=== PATIENT | female | born 1965 | race Caucasian/White ===

== ENCOUNTER 2019-10-19 06:37 | Observation (INO) ==
--- NOTE | 2019-09-18 16:18 | PAT Medication Instructions ---
Medication Instructions Date of Service September 18, 2019 Home Medications Medication Instructions Recorded atorvastatin 10 mg tablet 10 mg PO QPM #90 tab 10/30/18 meloxicam 7.5 mg tablet 7.5 mg PO BID PRN #180 tab 12/16/18 aspirin 81 mg tablet,delayed release 81 mg PO DAILY cholecalciferol (vitamin D3) 50 mcg (2,000 unit) capsule 2,000 unit PO .TAKE 1 CAPSULE Daily atorvastatin 10 mg tablet 10 mg PO QPM meloxicam 7.5 mg tablet 7.5 mg PO BID PRN atenolol 50 mg PO QAM levothyroxine 50 mcg PO QAM losartan-hydrochlorothiazide 1 tab PO QAM metformin 500 mg PO UD omeprazole 20 mg PO QAM ASK your surgeon for instructions meloxicam 7.5 mg tablet 7.5 mg PO BID PRN DO NOT take the morning of surgery cholecalciferol (vitamin D3) 50 mcg (2,000 unit) capsule 2,000 unit PO .TAKE 1 CAPSULE Daily losartan-hydrochlorothiazide 1 tab PO QAM metformin 500 mg PO UD Take morning of surgery With a small sip of water, OTHERWISE NOTHING TO EAT OR DRINK AFTER MIDNIGHT: aspirin 81 mg tablet,delayed release 81 mg PO DAILY atenolol 50 mg PO QAM levothyroxine 50 mcg PO QAM omeprazole 20 mg PO QAM Take evening before surgery atorvastatin 10 mg tablet 10 mg PO QPM metformin 500 mg PO UD Other Notes If you have any questions please call us at [phone] or [phone] or [phone] or [phone]
--- NOTE | 2019-09-22 11:41 | Anesthesiology Consultation ---
Date of Service September 22, 2019 Assessment & Plan (1) Encounter for pre-operative examination: - Check BSG AM DOS Per PAT assessment on 09/21: Travel screen negative. No known COVID-19 positive contacts (grandson had fever- COVID testing was negative). No current COVID-19 related symptoms. Surgeon arranging preop COVID testing. Awaiting results. Chart Review Chart Review: Acceptable Risk for Surgery (pending COVID testing) and Patient seen in Pre Admission Testing Teaching & Discussion Pre-Anesthesia Teaching/Discussion Notes: Instructed NPO after midnight before surgery,except medications with 15 cc of water. Medication instructions provided according to the PAT guidelines. History Surgery Operation Date: 10/19/19 07:30 Proposed Procedures p Right Total Knee Arthroplasty - Ritchie Martinez DO Height/Weight Height: 5 ft 1.5 in Weight: 101.4 kg Allergies Allergy/AdvReac Type Severity Reaction Status Date / Time BEE STINGS Allergy Unknown unknown Uncoded 09/22/19 11:39 reaction as child Medications Home Medications Medication Instructions Recorded Confirmed Last Taken aspirin 81 mg tablet,delayed 81 mg PO DAILY tab 08/22/18 09/15/19 Unknown release cholecalciferol (vitamin D3) 50 2,000 unit PO .TAKE 1 CAPSULE 08/22/18 09/15/19 Unknown mcg (2,000 unit) capsule Daily cap atorvastatin 10 mg tablet 10 mg PO QPM #90 tab 10/30/18 09/15/19 Unknown meloxicam 7.5 mg tablet 7.5 mg PO BID PRN #180 tab 12/16/18 09/15/19 Unknown atenolol 50 mg PO QAM 09/15/19 09/15/19 Unknown levothyroxine 50 mcg PO QAM 09/15/19 09/15/19 Unknown losartan-hydrochlorothiazide 1 tab PO QAM 09/15/19 09/15/19 Unknown metformin 500 mg PO UD 09/15/19 09/15/19 Unknown omeprazole 20 mg PO QAM 09/15/19 09/15/19 Unknown Wheeled Walker #1 ea 09/22/19 09/22/19 Unknown Past Medical History Medical History (Updated 09/22/19 @ 15:56 by Aleta Toro) Diabetes mellitus type 2, controlled NIDDM Diarrhea chronic Dyslipidemia Esophageal reflux controlled Hypertension Hypothyroidism Morbid obesity Exercise / Class Metabolic Activity II 4-5 Yardwork/Stairs/Walk up hill Past Family History Family History Mother Hypertension Father Diabetes Pure hypercholesterolemia Kidney disease PVD (peripheral vascular disease) Hypertension Other Family history of Walton's esophagus Past Surgical History Surgical History History of colonoscopy History of dental surgery WISDOM TEETH History of dilation and curettage History of hysteroscopy History of tubal ligation Status post hysteroscopic ablation of endometrium HX OF Past Anesthesia History No Hx of Anesthesia Complications and No Family Hx of Anesthesia Complications History of PONV No Hx of PONV and No Hx of Motion Sickness Social History Smoking Status: Never smoker Do You Dip or Chew Tobacco: No Hx Alcohol Use: Yes (ONCE A YR) Hx Substance Use: No substance use type: does not use Review of Systems Patient denies chest pain, shortness of breath, dyspnea on exertion, joint pain, reflux, cough, wheezing, palpitations. Physical Exam Vital Signs VIT/ALS BP 119/73 P 60 TEMP 98.3 SP02 97%RA RESP16 PHYSICAL Full neck and c-spine range of motion. Full TMJ range of motion. TMD 3.5 finger breaths Mallampati Score 3 Dentition: upper right chipped molar per patient, missing molars Lungs: clear throughout to auscultation Cardiac: regular rate and rhythm, no murmurs noted Spine: normal Carotid arteries: negative bruit Extremities: no edema Testing Laboratory Results 09/22/19 12:47 09/22/19 12:47 PT 10.6 Seconds (9.0-12.0) 09/22/19 12:47 INR 1.0 (0.9-1.1) 09/22/19 12:47 APTT 32.8 Seconds (21.0-31.0) H 09/22/19 12:47 Hemoglobin A1c 6.8 % (4.5-5.6) H 09/22/19 12:47 Blood Type AB Negative 09/22/19 12:47 Antibody Screen NEGATIVE 09/22/19 12:47 Electrocardiogram Date: 09/22/19 Findings: + SB @ (58) Chest X-Ray Date: 09/22/19 Heart and mediastinal and hilar silhouettes are within normal limits. No pneumothorax, pleural effusion or overt pulmonary edema. Ill-defined medial right lung base opacities are suggestive of summation density/atelectasis. Bones appear grossly intact. IMPRESSION: No acute process.
[2019-09-22 13:12] LABS: Basophils # (auto) 0.05 K/uL (0-0.2); Basophils % (auto) 0.6 %; Eosinophils # (auto) 0.16 K/uL (0-0.5); Eosinophils % (auto) 1.8 %; Hematocrit (blood only) 40.1 % (37-47); Hemoglobin 13.5 g/dL (12.0-16.0); Immature Granulocytes # (auto) 0.02 K/uL (0.00-0.02); Immature Granulocytes % (auto) 0.2 %; Lymphocytes # (auto) 2.97 K/uL (1.2-3.4); Lymphocytes % (auto) 33.5 %; Mean Corpuscular Hemoglobin 29.1 pg (25-34); Mean Corpuscular Hgb Conc 33.7 g/dL (32-36); Mean Corpuscular Volume 86.4 fL (80-100); Mean Platelet Volume 11.7 fL (7.4-10.4); Monocytes # (auto) 0.55 K/uL (0.11-0.59); Monocytes % (auto) 6.2 %; Neutrophils # (auto) 5.11 K/uL (1.4-6.5); Neutrophils % (auto) 57.7 %; Platelet Count 281 K/uL (130-400); RDW Coefficient of Variation 12.6 % (11.5-14.5); RDW Standard Deviation 40.2 fL (36.4-46.3); Red Blood Count 4.64 M/uL (4.2-5.4); White Blood Count 8.86 K/uL (4.8-10.8)
--- NOTE | 2019-09-22 13:16 | XRay Report ---
XR chest Pre-admission PA/Lat HISTORY: 53 years-old Female pat preoperative exam. COMPARISON: Chest radiographs 06/15/2014 TECHNIQUE: PA and lateral views of the chest FINDINGS: Heart and mediastinal and hilar silhouettes are within normal limits. No pneumothorax, pleural effusi on or overt pulmonary edema. Ill-defined medial right lung base opacities are suggestive of summation density/atelectasis. Bones appear grossly intact. IMPRESSION: No acute process. ACT 112: Negative or not required by law. The above report was generated using voice recognition software. It may contain grammatical, syntax o r spelling errors. Electronically signed by: Nicho Vinson M.D. 09/22/2019 1:15 PM
[2019-09-22 13:35] LABS: Partial Thromboplastin Ratio 1.2; Partial Thromboplastin Time 32.8 Seconds (21.0-31.0); Prothrombin Time 10.6 Seconds (9.0-12.0)
[2019-09-22 13:37] LABS: Estimated Average Glucose 148 mg/dl; Hemoglobin A1C 6.8 % (4.5-5.6)
--- NOTE | 2019-09-22 13:44 | Electrocardiogram Report ---
Test Reason : Blood Pressure : / mmHG Vent. Rate : 058 BPM Atrial Rate : 058 BPM P-R Int : 150 ms QRS Dur : 080 ms QT Int : 444 ms P-R-T Axes : 043 061 049 degrees QTc Int : 435 ms Sinus bradycardia Otherwise normal ECG When compared with ECG of 18-FEB-2014 15:13, No significant change was found Confirmed by Kraig Barrientos ([id number]) on 09/22/2019 1:43:45 PM Referred By: Ritchie Martinez Confirmed By:Kraig Barrientos
[2019-09-22 14:47] LABS: BUN Creatinine Ratio 17.5 (10-20); Calcium 9.7 mg/dl (8.5-10.1); Creatinine Clr Calc Pharmacy 91.8 ml/min; Est GFR (African American) 98.9; Est GFR (Non-African American) 85.4; Potassium 4.2 mmol/L (3.5-5.1)
--- NOTE | 2019-10-14 07:25 | History & Physical Report ---
Date of Service October 14, 2019 Assessment & Plan (1) Osteoarthritis of right knee: We will proceed with a right total knee arthroplasty. Postoperatively she will be started on aspirin for DVT prophylaxis and kept overnight in the hospital for postoperative medical management. She plans to use energy physical therapy upon discharge. Phyllis is an increased risk for joint replacement surgery with a BMI of 41.6. This is a major comorbidity. Present on Admission?: Yes History of Present Illness Chief Complaint: Primary osteoarthritis of the right knee Primary Care Provider: Christa Calderon MD Phyllis is a pleasant 53-year-old female who is been doing with chronic increasing right knee pain. X-rays and clinical examination have been diagnostic for advanced osteoarthritis of the right knee. After failing extensive conservative treatment, including multiple injections, she has elected proceed with a right total knee arthroplasty. Allergies Allergy/AdvReac Type Severity Reaction Status Date / Time lisinopril Allergy Unknown Verified 10/12/19 09:29 BEE STINGS Allergy Unknown unknown Uncoded 10/12/19 09:29 reaction as child Home Medications Home Medications Medication Instructions Recorded Confirmed Type aspirin 81 mg tablet,delayed 81 mg PO DAILY tab 08/22/18 10/12/19 History release cholecalciferol (vitamin D3) 50 2,000 unit PO .TAKE 1 CAPSULE 08/22/18 10/12/19 History mcg (2,000 unit) capsule Daily cap atorvastatin 10 mg tablet 10 mg PO QPM #90 tab 10/30/18 10/12/19 Rx meloxicam 7.5 mg tablet 7.5 mg PO BID PRN #180 tab 12/16/18 10/12/19 Rx atenolol 50 mg PO QAM 09/15/19 10/12/19 History Wheeled Walker #1 ea 09/22/19 10/12/19 Rx levothyroxine 50 mcg tablet 50 mcg PO QAM #90 tab 10/05/19 10/12/19 Rx losartan 50 mg-hydrochlorothiazide 1 tab PO QAM #90 tab 10/05/19 10/12/19 Rx 12.5 mg tablet metformin 500 mg tablet 500 mg PO UD #270 tab 10/05/19 10/12/19 Rx omeprazole 20 mg capsule,delayed 20 mg PO QAM #90 cap 10/05/19 10/12/19 Rx release Past Med/Surg History Medical History Diabetes mellitus type 2, controlled NIDDM Diarrhea chronic Dyslipidemia Esophageal reflux controlled Hypertension Hypothyroidism Morbid obesity Surgical History History of colonoscopy History of dental surgery WISDOM TEETH History of dilation and curettage History of hysteroscopy History of tubal ligation Status post hysteroscopic ablation of endometrium HX OF Family History Mother Hypertension Father Diabetes Pure hypercholesterolemia Kidney disease PVD (peripheral vascular disease) Hypertension Other Family history of Walton's esophagus Social History Smoking Status: Never smoker Hx Alcohol Use: Yes (ONCE A YR) Hx Substance Use: No Preferred Language: Czech Communication Ability: Effective 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 Beliefs That Will Affect Care: None Current Living Situation: Spouse Feels Safe at Home: Yes Review of Systems Review of Systems: All systems reviewed & are unremarkable except as noted in HPI & below Physical Exam Constitutional: WD/WN, vitals as above Eyes: PERRL, conjunctivae normal, anicteric sclerae ENMT: external ear and nose normal, oropharynx normal Neck: trachea midline, no thyromegaly Respiratory: normal respiratory effort Cardiovascular: RRR, no murmur, no edema Gastrointestinal (Abdomen): normal bowel sounds, soft, nontender, no hepatosplenomegaly Musculoskeletal: On physical examination of the right knee there is a trace effusion. There is near full range of motion and no evidence of instability. There is significant tenderness palpation along the medial and lateral joint lines and over the distal femoral condyles. Psychiatric: A+Ox3, euthymic affect Results & Data Results & Data ([facility]) Diagnostic Findings Radiographs of the right knee demonstrate advanced osteoarthritis with joint space narrowing osteophyte formation and [id number] articulation. PG Care Time/CCT Total # of Minutes Spent Total Time Spent with Patient: Total time spent is greater than 50% in coordination of care (as documented) at patient's floor/unit and/or counseling patient: Coding Level of Care Code 30555 Initial Inpt Care Lvl 2 Diagnoses Osteoarthritis of right knee M17.11
[~2019-10-19 06:37] MED LIST: ACETAMINOPHEN 500 MG TAB PO SCH; BUPIVACAINE 0.5 % 5 MG/1 ML PF 10ML VIAL ONE; CEFAZOLIN 2000MG 2,000 MG/15 ML SYR IV SCH; EPINEPHrine INJ 1 MG/ML AMP ONE; FAMOTIDINE 20 MG TAB PO SCH; GABAPENTIN 900 MG DOSE PO SCH; LR 500ML BOLUS, THEN 15ML/HR IV SCH; LR 60ML/HR IV SCH; ROPIVACAINE 0.5% 5 MG/ML 30 ML VIAL ONE; ROPIVACAINE 0.5% HCL/PF 150 MG, BUPIVACAINE 0.5% MPF 30 ML, EPINEPHrine 30MG/30ML (OR U... INSTIL SCH; TRANEXAMIC ACID 1,000 MG **IV Intra-op IV SCH; TRANEXAMIC ACID 1,000 MG **IV Pre-op IV SCH; dexAMETHasone 4 MG TAB PO SCH
--- NOTE | 2019-10-19 06:41 | History & Physical Bridge Note ---
Date of Service October 19, 2019 History & Physical Bridge Note I have examined the patient, reviewed the History & Physical and in the interval since the performance of the History & Physical I have noted the following changes of clinical significance: no changes noted
[2019-10-19] MEDS ORDERED: PROPOFOL IV EMULSION 10 MG/ML 20 ML VIAL IV ONE ×2 (07:57→09:47)
[2019-10-19] MEDS ORDERED: LIDOCAINE HCL 2% 2 ML VIAL/AMP(20MG/ML) INFIL ONE (07:57)
[2019-10-19] MEDS ORDERED: fentaNYL citrate 100 MCG/2 ML VIAL ONE ×2 (07:57→09:33)
[2019-10-19] MEDS ORDERED: MIDAZOLAM HCL 1 MG/ML 2ML VIAL ONE ×3 (07:58→09:26)
[2019-10-19] MEDS ORDERED: ePHEDrine sulfate 50 MG/ML AMP IV PRN (07:59)
[2019-10-19] MEDS ORDERED: HYDROmorphone INJ 1 MG/ML SYRINGE IV PRN (07:59)
[2019-10-19] MEDS ORDERED: fentaNYL citrate 100 MCG/2 ML VIAL IV PRN (07:59)
[2019-10-19] MEDS ORDERED: ONDANSETRON INJ 2 MG/ML 2 ML VIAL IV PRN ×2 (07:59→11:54)
[2019-10-19] MEDS ORDERED: LABETALOL HCL IV 5 MG/ML 20ML IV PRN (07:59)
[2019-10-19] MEDS ORDERED: MEPERIDINE HCL 25 MG/ML CARP/VIAL IV PRN (07:59)
[2019-10-19] MEDS ORDERED: ATROPINE SULFATE 0.1 MG/ML 10ML SYR IV PRN (07:59)
[2019-10-19] MEDS ORDERED: PHENYLEPHRINE 100MCG/ML 5ML SYR IV PRN (07:59)
[2019-10-19] MEDS ORDERED: ORTHO JOINT ANESTHETIC ONE (08:59)
[2019-10-19] MEDS ORDERED: GLYCOPYRROLATE 0.2 MG/ML VIAL ONE (09:47)
--- NOTE | 2019-10-19 10:52 | Operative Report ---
PG Post Operative Report Pre & Post Diagnosis Operation Date: 10/19/19 09:05 Pre-Op Diagnosis: Degenerative Joint Disease Right Knee and morbid obesity with a BMI of 40.6 Post-Op Diagnosis: Degenerative Joint Disease Right Knee and morbid obesity with BMI of 40.6 I identified the patient and participated in the time-out.: Yes Procedure Operation Date: 10/19/19 09:05 Actual Procedures p Right Total Knee Arthroplasty with increased difficulty due to morbid obesity (modifier 22) (Right) - Ritchie Martinez DO Surgeon Ritchie Martinez DO Grinder Set Up Operator Thread Tool Ritchie Pepe PAC Estimated Blood Loss 10 Findings Consistent with Post-Op Diagnosis Specimens Right femoral and tibial bone Complications none Disposition Disposition: Recovery Room Indications Phyllis is a pleasant 53-year-old female who is been doing with chronic increasing right knee pain. X-rays and clinical examination have been diagnostic for advanced osteoarthritis of the right knee. After failing conservative treatment, she elected proceed with a right total knee arthroplasty. Description of Procedure Implants used: I used a Noreen Persona total knee arthroplasty system with a size 6 standard femur, E tibia with a 30 mm stem extension, 29 patella, and a size 13 medial congruent polyethylene bearing. All components were cemented in place with Palacos G cement. Phyllis arrived [facility] for the above procedure. She was seen in the preoperative holding area and the operative extremity was identified and signed. She was given a preoperative antibiotic, TXA, a spinal anesthetic and an adductor nerve block. She was taken back to the operating room and laid on the table in supine position. She was given basic sedation. The operative knee was then prepped and draped in sterile fashion. A timeout was done, and the patient and the operative extremity was properly identified. A midline incision was made directly over the patella. Dissection was taken down to the extensor mechanism. A subvastus arthrotomy was used. The medial retinaculum was released and the fat pad was mostly excised. The knee was flexed and the ACL, PCL, and meniscus were removed. A drill was sent down the center of the femoral canal followed by an intramedullary jose. Off that jose a distal femoral cutting block was placed. 9 mm was resected off the distal femur at 5 of valgus. A posterior referencing AP sizing guide was then placed on the distal femur. The femur measured to be a size 6 standard. 2 drill holes were placed in 3 of external rotation. A 4-in-1 cutting block was then impacted into place. Anterior, posterior, and chamfer cuts were then made. The proximal tibia was then exposed. An external tibial alignment guide was placed. A tibial cut guide was then anchored in place and the proximal tibia was then resected. The posterior aspect of the knee was then opened up and any additional meniscus fragments and osteophytes were removed. The tibia measured to be a size E. The tibial plate was then placed in the appropriate rotation and the tibia was drilled and punched. The tibial canal was drilled for a 30 mm stem extension. I used the stem extension because of her obesity. Trial components were then placed. I used a size 13 medial congruent polyethylene insert. The knee was brought through a full range of motion and felt to be stable. The peg holes for the femoral component were then drilled. The patella was then everted and 9 mm was resected off the posterior aspect of the patella. The patella measured to be a size 29. 3 peg holes were then drilled. A trial patella was placed. The knee was once again brought through a full range of motion and felt to be stable. Trial components were then removed. The surrounding soft tissues were injected with 100 cc of an orthopedic pain control cocktail. All components were then cemented into place with Palacos G cement. The final polyethylene insert was then snapped into place. Once cement was dry the tourniquet was deflated. Hemostasis was obtained. A dilute betadyne lavage was then done for 3 minutes. The joint was then irrigated with normal saline solution. The subvastus arthrotomy was then closed with #1 Vicryl suture. The skin was closed with 2-0 Vicryl, 3-0V lock suture, and linda. A Silverlon and a soft compressive dressing were placed. She was then transferred to a hospital bed and taken to the postanesthesia care unit in stable condition. She tolerated the procedure well. Ritchie Pepe PA-C, was present for the entire procedure. He was critical for patient positioning, prepping, draping, retraction exposure, wound closure and application of sterile dressing. I attest to the content of the Intraoperative Record and any orders documented therein. Any exceptions are noted below.
--- NOTE | 2019-10-19 11:22 | Anesthesiology Progress Note ---
Date of Service October 19, 2019 Anesthesia Post Procedure Vital Signs Vital Signs: Temp Pulse Pulse Resp BP BP Pulse Ox 10/19/19 11:10 89 18 129/85 96 10/19/19 11:03 36.1 C L 90 16 114/70 98 10/19/19 08:08 64 18 130/81 98 10/19/19 07:07 36.7 C 78 18 145/84 H 99 Transfer of Care Handoff Completed per policy Notes Mental Status: alert / awake / arousable Patient Amnestic to Procedure: Yes Nausea / Vomiting: adequately controlled Pain: adequately controlled Airway Patency, RR, SpO2: stable & adequate BP & HR: stable & adequate Hydration State: stable & adequate Neuraxial Anesthesia: was administered and sensory block is resolving Anesthetic Complications: no major complications apparent and Pt Satisfied with anesthetic care
--- NOTE | 2019-10-19 11:35 | XRay Report ---
TWO VIEWS RIGHT KNEE CLINICAL HISTORY: Postoperative examination. FINDINGS: AP and crosstable lateral portable views of the right knee are obtained. A right knee arthr oplasty is in near anatomic alignment. There has been undersurface remodeling of the patella. No acut e fracture is seen. There are expected postoperative changes around the knee including skin clips, so ft tissue edema, and subcutaneous gas. IMPRESSION: Expected postoperative changes status post right knee arthroplasty. No acute fracture is seen. ACT 112: Negative or not required by law. Electronically signed by: Barrington Scanlon M.D. 10/19/2019 11:34 AM
[2019-10-19] MEDS ORDERED: NALOXONE HCL 0.4 MG/1 ML VIAL/CARP IV PRN (11:54)
[2019-10-19] MEDS ORDERED: METOCLOPRAMIDE HCL INJ 5 MG/ML 2 ML VIAL IV PRN (11:54)
[2019-10-19] MEDS ORDERED: bisacodyL 10 MG SUPP PR PRN (11:54)
[2019-10-19] MEDS ORDERED: HYDROmorphone INJ 0.5 MG/0.5 ML SYR IV PRN (11:54)
[2019-10-19] MEDS ORDERED: OXYCODONE HCL IR 5 MG TAB (IMMEDIATE RELEASE) PO PRN (11:54)
[2019-10-19] MEDS ORDERED: MAGNESIUM HYDROXIDE SUSP 30 ML UDC PO PRN (11:54)
[2019-10-19] MEDS ORDERED: DEXTROSE 50% 50 ML SYRINGE IV PRN (12:15)
[2019-10-19] MEDS ORDERED: CARBOHYDRATES FOR HYPOGLYCEMIA PO PRN (12:15)
[2019-10-19] MEDS ORDERED: GLUCOSE 10 TABS/TUBE PO PRN (12:15)
[2019-10-19] MEDS ORDERED: GLUCAGON FOR INJ 1 MG VIAL IM PRN (12:15)
[2019-10-19] MEDS ORDERED: GLUCOSE 40% GEL 15 GM TUBE PO PRN (12:15)
[2019-10-19] MEDS ORDERED: PHARMACY GLYCEMIC MGMT CONSULT PRN (12:16)
[2019-10-19] MEDS ORDERED: NovoLIN-N (NPH) PER UNIT CHARGE SQ ONE (12:30)
[2019-10-19] MEDS: SODIUM CHLORIDE 0.9% 1000ML 1,000 ML IV SCH ×2 (13:01→21:53)
[2019-10-19] MEDS: KETOROLAC 30 MG/ML VIAL IV SCH ×2 (13:01→18:47)
[2019-10-19] MEDS: ACETAMINOPHEN 500 MG TAB PO SCH ×2 (13:02→21:49)
[2019-10-19] MEDS: INSULIN ASPART 100 UNITS/ML 3 ML PEN SC SCH ×3 (13:02→21:45)
--- NOTE | 2019-10-19 13:26 | Pharmacy Report ---
Glycemic Control Consultation - Date of Service October 19, 2019 - Scope Scope: Glycemic Pharmacist consulted for glycemic control and to write orders per [facility] inpatient glycemic control protocol. - Objective Weight: 99.1 kg Accuchecks BSG (last 24hrs): 10/19/19 10/19/19 10/19/19 06:59 11:05 12:16 POC Glucose 143 H 177 H 192 H HbA1c: Hemoglobin A1c 6.8 % (4.5-5.6) H 09/22/19 12:47 - Recent Pertinent Medications Outpatient Anti-diabetic Regimen: * metformin 500 mg Po qAM and metformin 1000 mg PO qPM Risk Factors for Insulin Resistance: * Steroids: dexamethasone 8 mg PO preop plus 4 mg topically * Recent Surgery: POD 0 for R knee * Diet: T2DM - Assessment & Plan Assessment & Plan: ASSESSMENT: * Ms Pennington is a 53 y/o F with a PMH of well controlled T2DM on one oral medication who presents for R knee replacement. * Pt is maintained on oral antidiabetic agents as an outpatient * Oral agents are not recommended for inpatient use d/t drug interactions, changing PO intake, and difficulty titrating for acute hyper/hypoglycemia. ADA recommends re-initiating outpatient oral agents 1-2 days prior to discharge if/when appropriate if they were held on admission. * Plan to restart tomorrow afternoon if kidney function and diet is okay * Give NPH 25 units SQ x 1 (weight-based stress of 3 dosing) for steroid hyperglycemia. * Start Novolog weight-based stress of 2-3. Overnight checks added. * ADA & AACE recommend a goal blood sugar range 140-180 mg/dl for the majority of critically ill & non-critically ill patients. However, more stringent targets may be selected in individual cases. Will utilize more stringent goal of 110-140mg/dl based on patient age & comorbidities. Additionally, tighter glycemic control is warranted to facilitate wound healing. PLAN FOR INPATIENT GLYCEMIC CONTROL: * Holding outpatient oral diabetes medications- consider restarting tomorrow evening * Basal insulin * NPH 25 units SQ x 1 * Bolus insulin * NovoLog per scale ACHS or Q6hrs while NPO * Goal Range: Low 110 mg/dL - High 140 mg/dL * Correction Factor: 18 mg/dL/unit * Nutritional / Prandial insulin per carb ratio of 1 unit per 6 grams CHO consumed Recommendations for Outpatient Management * Patient is at goal for HbA1C. Recommend continuation of current regimen and follow-up with PCP. * HbA1C = 6.8% * goal HbA1C < 7% Thank you.
[2019-10-19] MEDS: CEFAZOLIN 2000MG 2,000 MG/15 ML SYR IV SCH (18:45)
[2019-10-19] MEDS ORDERED: SENNA 8.6 MG TAB PO SCH (21:00)
[2019-10-19] MEDS ORDERED: ATORVASTATIN 10 MG TAB PO SCH (21:00)
[2019-10-19] MEDS: DOCUSATE SODIUM 100 MG CAP PO SCH (21:50)
[2019-10-19] MEDS: ASPIRIN 81 MG ECTAB PO SCH (21:50)
[2019-10-20] MEDS: KETOROLAC 30 MG/ML VIAL IV SCH ×3 (00:20→12:18)
[2019-10-20] MEDS: INSULIN ASPART 100 UNITS/ML 3 ML PEN SC SCH ×4 (00:20→12:19)
[2019-10-20] MEDS: CEFAZOLIN 2000MG 2,000 MG/15 ML SYR IV SCH (00:21)
[2019-10-20] MEDS: ACETAMINOPHEN 500 MG TAB PO SCH ×2 (05:29→12:19)
[2019-10-20 06:11] LABS: Hematocrit (blood only) 34.2 % (37-47); Hemoglobin 11.4 g/dL (12.0-16.0); Mean Corpuscular Hgb Conc 33.3 g/dL (32-36); Mean Platelet Volume 11.8 fL (7.4-10.4); Platelet Count 257 K/uL (130-400); Red Blood Count 4.07 M/uL (4.2-5.4); White Blood Count 21.27 K/uL (4.8-10.8)
[2019-10-20] MEDS ORDERED: LEVOTHYROXINE SODIUM 50 MCG TABLET PO SCH (06:30)
[2019-10-20 06:46] LABS: BUN Creatinine Ratio 17.9 (10-20); Calcium 7.8 mg/dl (8.5-10.1); Creatinine Clr Calc Pharmacy 82.4 ml/min; Est GFR (African American) 88.2; Est GFR (Non-African American) 76.1; Potassium 3.7 mmol/L (3.5-5.1)
--- NOTE | 2019-10-20 07:00 | Orthopedic Progress Note ---
Date of Service October 20, 2019 Assessment & Plan (1) Status post right knee replacement: Overall she is doing fairly well. She is not having too much pain in the right knee. She will be seen by physical therapy today for ambulation and range of motion exercises. If she is doing well later today she can be discharged home, however, if she is having some pain in the knee and would like to stay until tomorrow that certainly reasonable as well. She wants to see how she does later today. If she is discharged today she can follow-up with orthopedics in 2 weeks. Present on Admission?: Yes Admission and Anticipated Discharge Date Admission Date: October 19, 2019 Max Ferguson was seen and examined at bedside this morning. Overall she is doing fairly well. She is having too much pain in the right knee. She has been up and ambulating to the bathroom. She has no complaints. Physical Exam Musculoskeletal: On physical examination of the right knee, the dressing is clean and dry. Her legs out in full extension. She has active dorsiflexion and plantarflexion of her right ankle. Results & Data ([facility]) Vital Signs (Past 12 Hours) Vital Signs Temp Pulse Resp BP Pulse Ox 10/20/19 03:57 36.6 C 71 16 108/66 96 10/19/19 23:25 36.5 C 73 18 105/68 95 Laboratory Results H & H 09/22/19 10/20/19 Range/Units 12:47 05:54 Hgb 13.5 11.4 L (12.0-16.0) g/dL Hct 40.1 34.2 L (37-47) % Coagulation 09/22/19 Range/Units 12:47 INR 1.0 (0.9-1.1) Diagnostic Findings Postoperative x-rays of the right knee show the prosthesis to be in anatomic alignment without any evidence of fracture, dislocation, or loosening. PG Care Time/CCT Total # of Minutes Spent Total Time Spent with Patient: Total time spent is greater than 50% in coordination of care (as documented) at patient's floor/unit and/or counseling patient: Coding Level of Care Code None Diagnoses Status post right knee replacement Z96.651
--- NOTE | 2019-10-20 07:01 | Discharge Summary ---
Date of Service October 20, 2019 Admission HPI Per Admitting Provider Phyllis is a pleasant 53-year-old female who is been doing with chronic increasing right knee pain. X-rays and clinical examination have been diagnostic for advanced osteoarthritis of the right knee. After failing ext ensive conservative treatment, including multiple injections, she has elected proceed with a right total knee arthroplasty. Principal Diagnosis Right knee replacement Discharge Data Allergies Allergy/AdvReac Type Severity Reaction Status Date / Time lisinopril Allergy Unknown Verified 10/19/19 06:51 BEE STINGS Allergy Unknown unknown Uncoded 10/19/19 06:51 reaction as child Consultations 10/19/19 11:54 Consult Case Management - Discharge Planning Routine Procedures Performed Operation Date: 10/19/19 09:05 Actual Procedures p Right Total Knee Arthroplasty(Right) - Ritchie Martinez DO Ordered Studies 10/19/19 05:00 US - OR guided needle placemen Routine Hospital Course (1) Status post right knee replacement: On October 19, 2019 Kristina arrived at [facility] and underwent a right knee replacement without complication. She had a spinal anesthetic. Postoperatively she was started on aspirin for DVT prophylaxis and transferred to the general orthopedic floors. Her hospital course was uneventful. On postop day #1 her H&H was stable and her pain was well controlled. She was able to participate well with physical therapy doing ambulation and range of motion exercises. She was then discharged home. She will follow-up with orthopedics in 2 weeks. Total Time Total Time Spent Total Time Spent (In Minutes): 20 Discharge Plan Discharge Items Patient Disposition: Home - Home Health Services Reason For Visit: Degenerative Joint Disease Right Knee Discharge Diagnosis: Right knee replacement Activity: As commented below Non-emergency contact: Surgeon Call non-emergency contact if: your wound has increased redness and your wound has increased drainage Follow-up/Referrals: Christa Calderon MD [Primary Care Provider] - Diet: Regular Addtl Attending Provider Instructions: Activity and Therapy Recommendations: * If you are using [facility] then therapy will be provided at your home until they feel you have accomplished all of your goals. * If you are using [facility] then Physical Therapy will be provided until they feel you are ready to start Outpatient Physical Therapy. * If you are not using home therapy then Outpatient Physical Therapy should start about 3-5 days from your day of surgery. Therapy will last about 6-10 weeks * It is important not to put a pillow under your knee when you are relaxing or sleeping. It is just as important to make sure you are getting your knee perfectly straight as it is to regain your knee bend. * You were shown a series of exercises in the hospital. Do these exercises three times each day including the exercises you were shown in physical therapy. * Get up and walk several times each day. For the first four weeks, try not to stand or walk for more than one hour at a time. If you do stand or walk for more than one hour, you will not hurt anything, but your leg will likely swell. * As you feel comfortable, you may change from the walker or crutches to a cane and then to independent walking. Medications: * Narcotic You will likely be sent home from the hospital with a prescription for the narcotic pain medication that worked best throughout your stay. * Aspirin Most patients will be required to take Aspirin 81mg twice a day for 6 weeks after surgery. This is obtained [id number] and a prescription is not necessary. * Other medications may be prescribed for specific circumstances. If you have any questions, please call the office at . * Resume previous home medications unless otherwise instructed TEDs/Elastic Stockings: The white elastic stockings help limit swelling and prevent blood clots from forming in your legs.~ The more you wear them, the more they work. Wear them for six weeks. Dressing Care: Leave the Silverlon dressing in place for 7 days. After 7 days you may remove the dressing. If the incision is not draining then you may leave the linda open to air. If there is a little bit of drainage or if the linda are getting stuck on your clothing then cover the incision with a dry dressing. The linda will be removed at your 2 week follow-up appointment. Showering: You may shower with the Silverlon dressing in place. Do not let the shower spray hit the dressing directly. Pat the Silverlon dressing dry. If the dressing becomes wet underneath, then simply remove the dressing. Keep the incision dry until you are 7 days out from the day of surgery. After 7 days you may remove the Silverlon dressing and shower with the linda exposed. Let soapy water run over the linda and pat them dry. Do not scrub or soak the incision. Things To Watch For: * Drainage from the incision site that occurs more than one week after your surgery. * Increased redness at the incision site. * Fever above 102 degrees Fahrenheit. * Unusual chest pain or shortness of breath. * Call [facility] at with any of the above problems Follow-Up Visit: Follow-up with Dr. Martinez's PA (Ritchie Pepe) 2-3 weeks after your day of surgery. He will remove your linda and answer any questions. If you have any additional questions or concerns, Dr Martniez is usually in the office at the same time and will be available An appointment was probably scheduled when you signed-up for surgery in the office. If you have any questions call Office Instructions: More detailed instructions as well as Frequently Asked Questions were provided in a folder by our office when you signed-up for surgery. Please review these instructions when you get home. If you have any further questions or concerns, please feel free to call the office at [phone] Pending Studies at Discharge: No Stand-Alone Forms: My [facility] [employer], Smoking Cessation Medications and DC Order Prescriptions: New oxycodone 5 mg Tablet 5 mg PO Q4H PRN (Reason: pain) Qty: 30 RF: 0 Continued atorvastatin 10 mg tablet 10 mg PO QPM Qty: 90 RF: 3 meloxicam 7.5 mg tablet 7.5 mg PO BID PRN (Reason: pain) Qty: 180 RF: 3 levothyroxine 50 mcg tablet 50 mcg PO QAM Qty: 90 RF: 3 losartan-hydrochlorothiazide 50-12.5 mg tablet 1 tab PO QAM Qty: 90 RF: 0 metformin 500 mg tablet 500 mg PO UD Qty: 270 RF: 0 omeprazole 20 mg capsule,delayed release(DR/EC) 20 mg PO QAM Qty: 90 RF: 0 (DME) Wheeled Walker Misc See Rx Instructions .ROUTE .MEDSUPPLY Qty: 1 RF: 0 cholecalciferol (vitamin D3) 2,000 unit capsule 2,000 unit PO .TAKE 1 CAPSULE Daily RF: 0 atenolol 50 mg tablet 50 mg PO QAM RF: 0 Changed aspirin 81 mg tablet,delayed release (DR/EC) 81 mg PO BID 42 Days Qty: 0 RF: 0 Discharge Orders: Discharge Order (Routine); Ordered 10/20/19 Ordered By: Ritchie Duke/Other Patient Handouts: Managing Type 2 Diabetes, Managing Diabetes: The A1C Test Admission Data Admit Date/Time: 10/19/19 11:05 Attending Provider: Ritchie Martinez Admit Provider: Ritchie Martinez Primary Care Provider: Christa Calderon Coding Level of Care Code D/C Day Management <30 mins Diagnoses Status post right knee replacement Z96.651
[2019-10-20] MEDS: DOCUSATE SODIUM 100 MG CAP PO SCH (08:28)
[2019-10-20] MEDS: ASPIRIN 81 MG ECTAB PO SCH (08:29)
[2019-10-20] MEDS ORDERED: PANTOprazole 40 MG TAB PO SCH (09:00)
[2019-10-20] MEDS ORDERED: MULTIVITAMIN TAB PO SCH (09:00)
[2019-10-20] MEDS ORDERED: LOSARTAN/HCTZ 50/12.5MG TAB PO SCH (09:00)
[2019-10-20] MEDS ORDERED: ATENOLOL 50 MG TABLET PO SCH (09:00)
[2019-10-20] MEDS ORDERED: METFORMIN HCL 500 MG TAB PO SCH (16:30)
[2019-10-21] MEDS ORDERED: METFORMIN HCL 500 MG TAB PO SCH (07:30)
== END 2019-10-20 13:20 | disposition home health service (06) ==
LOC: 3E 06:37 → ASU 06:37 → PAT 06:37